=== PATIENT | female | born 1950 | race Caucasian/White ===

== ENCOUNTER 2017-04-03 17:12 | Inpatient (IN) | payer MEDICAID, MEDICARE ==
[~2017-04-03] VITALS: Ht 152.4 cm; Wt 46.3 kg
[2017-04-03 18:06] LABS: ALBUMIN 3.5 g/dL (3.4-5.0); ANION GAP 10; CALCIUM 8.8 mg/dL (8.5-10.1); CARBON DIOXIDE 29 mEq/L (21-32); CHLORIDE 107 mEq/L (98-107); INDEX HEMOLYSI 1 (1-3); INDEX ICTERIC 1 (1-4); INDEX LIPEMIC 1 (1-3); UREA NITROGEN BLOOD 25 mg/dL (7-21)
[2017-04-03 18:07] LABS: BASOPHILS % 0.4 % (0.0-2.0); EOSINOPHILS % 2.3 % (0.0-5.0); HEMATOCRIT. 36.4 % (36.0-48.0); HEMOGLOBIN. 12.8 g/dL (12.0-16.0); LYMPHOCYTES % 17.5 % (20.0-50.0); MEAN CORPUSCULAR HEMOGLOBIN 32.9 pg (28.0-32.0); MEAN CORPUSCULAR HGB CONC 35.1 g/dL (31.0-37.0); MEAN CORPUSCULAR VOLUME 93.5 fL (81.0-99.0); MEAN PLATELET VOLUME 8.4 fl (7.4-10.4); MONOCYTES % 9.6 % (2.0-8.0); NEUTROPHILS % 70.2 % (40.0-76.0); PLATELET 273 x1000/uL (130-400); RED BLOOD CELL COUNT 3.89 mill/uL (4.2-5.4); RED CELL DISTRIBUTION WIDTH 13.7 % (11.6-14.6); WHITE BLOOD COUNT 8.9 x1000/uL (4.5-11.0)
[2017-04-03 18:11] LABS: ALANINE AMINOTRANSFERASE 26 IU/L (13-61); CREATINE KINASE 277 IU/L (26-192); ETHANOL BLOOD < 10 mg/dL; PROTHROMBIN TIME 10.4 sec; eGFR > 60 mL/min (>60)
[2017-04-03] MEDS ORDERED: SODIUM CHLORIDE 0.9% 500 ML IV ONE (19:30)
[2017-04-03] MEDS ORDERED: LEVETIRACETAM 500MG PREMIX 100 ML IV ONE (20:00)
[2017-04-03] MEDS ORDERED: ONDANSETRON HCL 4MG/2ML VIAL IV PRN (20:30)
[2017-04-03] MEDS ORDERED: IPRATROPIUM/ALBUTEROL 0.5-3(2.5)MG/3ML NEB INH PRN (20:30)
[2017-04-03] MEDS ORDERED: ACETAMINOPHEN 650MG/20.3ML UDC GT PRN (20:30)
[2017-04-03] MEDS ORDERED: ACETAMINOPHEN 650MG SUPP PR PRN (20:30)
[2017-04-03] MEDS ORDERED: DIPHENHYDRAMINE 50MG/ML VIAL IV PRN (20:30)
[2017-04-03] MEDS ORDERED: CLONIDINE 0.1MG TABLET PO PRN (20:30)
[2017-04-03] MEDS ORDERED: GUAIFENESIN 200MG/10ML SUGAR FREE UDC PO PRN (20:30)
[2017-04-03] MEDS ORDERED: DEXTROSE 50% WATER 50ML SYRINGE IV PRN (20:30)
[2017-04-03] MEDS ORDERED: ACETAMINOPHEN 325MG TABLET PO PRN (20:30)
[2017-04-03] MEDS ORDERED: DOCUSATE SODIUM 100MG CAPSULE PO PRN (20:30)
[2017-04-03] MEDS ORDERED: MAGNESIUM/ALUMINUM HYDROXIDE/SIMETHICONE 30ML UDC PO PRN (20:30)
[2017-04-03] MEDS ORDERED: NA PHOS,M-B/NA PHOS,DI-BA ENEMA 118ML PR PRN (20:42)
[2017-04-03] MEDS ORDERED: LORAZEPAM 1MG TABLET PO ONE (20:45)
[2017-04-04] VITALS: BP_SYST 134; BP_SYST 142; BP_DIAS 77
[2017-04-04] MEDS: INSULIN LISPRO 100 UNITS/ML SUBCUT SCH ×5 (00:33→21:00)
[2017-04-04] MEDS: BLOOD SUGAR DIAGNOSTIC STRIP TEST SCH ×5 (00:33→21:14)
[2017-04-04] MEDS: SODIUM CHLORIDE 0.9% INJ 3ML FLUSH IVF SCH ×4 (00:35→21:14)
[2017-04-04 04:00] VITALS: BP 120/69
[2017-04-04 06:17] LABS: BASOPHILS % 0.6 % (0.0-2.0); HEMATOCRIT. 35.6 % (36.0-48.0); LYMPHOCYTES % 32.5 % (20.0-50.0); MEAN CORPUSCULAR HEMOGLOBIN 31.7 pg (28.0-32.0); MEAN CORPUSCULAR HGB CONC 33.8 g/dL (31.0-37.0); MEAN PLATELET VOLUME 8.9 fl (7.4-10.4); MONOCYTES % 12.5 % (2.0-8.0); NEUTROPHILS % 49.4 % (40.0-76.0); PLATELET 251 x1000/uL (130-400); RED BLOOD CELL COUNT 3.79 mill/uL (4.2-5.4); RED CELL DISTRIBUTION WIDTH 13.4 % (11.6-14.6); WHITE BLOOD COUNT 6.4 x1000/uL (4.5-11.0)
[2017-04-04 06:22] LABS: ALANINE AMINOTRANSFERASE 22 IU/L (13-61); ALBUMIN 3.2 g/dL (3.4-5.0); ANION GAP 10; CALCIUM 8.4 mg/dL (8.5-10.1); CARBON DIOXIDE 25 mEq/L (21-32); CHLORIDE 109 mEq/L (98-107); HDL CHOLESTEROL 74 mg/dL (40-59); INDEX HEMOLYSI 1 (1-3); INDEX ICTERIC 1 (1-4); INDEX LIPEMIC 1 (1-3); LDL CHOLESTEROL 90 mg/dL (5-100); TRIGLYCERIDE 83 mg/dL (0-150); UREA NITROGEN BLOOD 16 mg/dL (7-21); eGFR > 60 mL/min (>60)
[2017-04-04 08:00] VITALS: BP 124/60
[2017-04-04] MEDS: ASPIRIN 81MG EC TABLET PO SCH (08:59)
[2017-04-04] MEDS: THIAMINE HCL 100MG TABLET PO SCH (08:59)
[2017-04-04 12:00] VITALS: BP 121/92
[2017-04-04] MEDS: SODIUM CHLORIDE 0.45% 1,000 ML IV SCH (13:11)
[2017-04-04 16:00] VITALS: BP 129/86
[2017-04-04 19:33] LABS: CLARITY URINE CLEAR (CLEAR); COLOR URINE YELLOW (YELLOW); GLUCOSE URINE NEGATIVE (NEGATIVE); KETONES URINE NEGATIVE (NEGATIVE); LEUKOCYTE ESTERASE URINE NEGATIVE (NEGATIVE); NITRITE URINE NEGATIVE (NEGATIVE); OCCULT BLOOD URINE NEGATIVE (NEGATIVE); PROTEIN URINE NEGATIVE (NEGATIVE); SPECIFIC GRAVITY URINE 1.021 (1.005-1.030)
[2017-04-04 19:54] LABS: *AMPHETAMINES SCREEN URINE NEGATIVE (NEGATIVE); *BARBITURATES SCREEN URINE NEGATIVE (NEGATIVE); *BENZODIAZEPINES SCREEN URINE NEGATIVE (NEGATIVE); *COCAINE SCREEN URINE NEGATIVE (NEGATIVE); CANNABINOID URINE SCREEN NEGATIVE (NEGATIVE); ECSTASY MDMA SCREEN URINE NEGATIVE (NEGATIVE); METHADONE URINE SCREEN NEGATIVE (NEGATIVE); OPIATES URINE SCREEN NEGATIVE (NEGATIVE); PHENCYCLIDINE URINE SCREEN NEGATIVE (NEGATIVE)
[2017-04-04 20:00] VITALS: BP 160/91
[2017-04-04] MEDS: MEMANTINE HCL 5MG TABLET PO SCH (21:08)
[2017-04-04] MEDS: RISPERIDONE 1MG TABLET PO SCH (21:08)
[2017-04-04 23:42] LABS: INDEX HEMOLYSI 1 (1-3)
[2017-04-04 23:56] LABS: VITAMIN B12 SERUM 470 pg/mL (211-911)
[2017-04-05] VITALS: BP 115/68
[2017-04-05 04:00] VITALS: BP 118/65
[2017-04-05] MEDS: SODIUM CHLORIDE 0.9% INJ 3ML FLUSH IVF SCH ×3 (06:14→21:12)
[2017-04-05] MEDS: BLOOD SUGAR DIAGNOSTIC STRIP TEST SCH ×4 (06:14→21:12)
[2017-04-05] MEDS: SODIUM CHLORIDE 0.45% 1,000 ML IV SCH ×2 (06:14→14:07)
[2017-04-05] MEDS: INSULIN LISPRO 100 UNITS/ML SUBCUT SCH ×4 (06:17→21:00)
[2017-04-05] MEDS: MEMANTINE HCL 5MG TABLET PO SCH (09:20)
[2017-04-05] MEDS: THIAMINE HCL 100MG TABLET PO SCH (09:20)
[2017-04-05] MEDS: ASPIRIN 81MG EC TABLET PO SCH (09:20)
[2017-04-05] MEDS: RISPERIDONE 1MG TABLET PO SCH ×2 (09:20→20:58)
[2017-04-05] MEDS: FLUCONAZOLE 100MG TABLET PO SCH (10:28)
[2017-04-05 12:00] VITALS: BP 114/67
[2017-04-05 16:00] VITALS: BP 122/68
[2017-04-05 20:00] VITALS: BP 117/68
[2017-04-06] VITALS: BP 121/70
[2017-04-06 04:00] VITALS: BP 112/72
[2017-04-06] MEDS: INSULIN LISPRO 100 UNITS/ML SUBCUT SCH ×4 (06:38→21:00)
[2017-04-06] MEDS: SODIUM CHLORIDE 0.9% INJ 3ML FLUSH IVF SCH ×3 (06:38→21:02)
[2017-04-06] MEDS: SODIUM CHLORIDE 0.45% 1,000 ML IV SCH (06:38)
[2017-04-06] MEDS: BLOOD SUGAR DIAGNOSTIC STRIP TEST SCH ×4 (06:38→21:01)
[2017-04-06 08:00] VITALS: BP 112/75
[2017-04-06] MEDS: FLUCONAZOLE 100MG TABLET PO SCH (09:38)
[2017-04-06] MEDS: MEMANTINE HCL 5MG TABLET PO SCH (09:38)
[2017-04-06] MEDS: ASPIRIN 81MG EC TABLET PO SCH (09:38)
[2017-04-06] MEDS: THIAMINE HCL 100MG TABLET PO SCH (09:38)
[2017-04-06] MEDS: RISPERIDONE 1MG TABLET PO SCH ×2 (09:38→20:57)
[2017-04-06 12:00] VITALS: BP 91/50
[2017-04-06 12:24] LABS: BASOPHILS % 0.5 % (0.0-2.0); HEMATOCRIT. 35.9 % (36.0-48.0); LYMPHOCYTES % 26.5 % (20.0-50.0); MEAN CORPUSCULAR HEMOGLOBIN 31.3 pg (28.0-32.0); MEAN CORPUSCULAR HGB CONC 33.5 g/dL (31.0-37.0); MEAN CORPUSCULAR VOLUME 93.4 fL (81.0-99.0); MEAN PLATELET VOLUME 8.3 fl (7.4-10.4); MONOCYTES % 10.7 % (2.0-8.0); NEUTROPHILS % 60.3 % (40.0-76.0); PLATELET 251 x1000/uL (130-400); RED BLOOD CELL COUNT 3.84 mill/uL (4.2-5.4); RED CELL DISTRIBUTION WIDTH 13.2 % (11.6-14.6); WHITE BLOOD COUNT 5.4 x1000/uL (4.5-11.0)
[2017-04-06 12:48] LABS: ALANINE AMINOTRANSFERASE 24 IU/L (13-61); ALBUMIN 3.4 g/dL (3.4-5.0); ANION GAP 11; CALCIUM 8.5 mg/dL (8.5-10.1); CARBON DIOXIDE 26 mEq/L (21-32); CHLORIDE 104 mEq/L (98-107); INDEX HEMOLYSI 1 (1-3); INDEX ICTERIC 1 (1-4); INDEX LIPEMIC 1 (1-3); UREA NITROGEN BLOOD 11 mg/dL (7-21); eGFR > 60 mL/min (>60)
[2017-04-06 16:00] VITALS: BP 104/69
[2017-04-06 20:00] VITALS: BP 140/68
[2017-04-07] VITALS: BP 112/75
[2017-04-07] MEDS: SODIUM CHLORIDE 0.45% 1,000 ML IV SCH ×2 (00:01→08:38)
[2017-04-07 04:00] VITALS: BP 100/58
[2017-04-07] MEDS: SODIUM CHLORIDE 0.9% INJ 3ML FLUSH IVF SCH ×3 (06:35→21:53)
[2017-04-07] MEDS: INSULIN LISPRO 100 UNITS/ML SUBCUT SCH ×4 (06:37→21:00)
[2017-04-07] MEDS: BLOOD SUGAR DIAGNOSTIC STRIP TEST SCH ×4 (06:37→21:00)
[2017-04-07 08:00] VITALS: BP 131/83
[2017-04-07] MEDS: THIAMINE HCL 100MG TABLET PO SCH (08:37)
[2017-04-07] MEDS: ASPIRIN 81MG EC TABLET PO SCH (08:37)
[2017-04-07] MEDS: MEMANTINE HCL 5MG TABLET PO SCH (08:37)
[2017-04-07] MEDS: RISPERIDONE 1MG TABLET PO SCH ×2 (08:37→21:53)
[2017-04-07] MEDS: FLUCONAZOLE 100MG TABLET PO SCH (08:37)
[2017-04-07 12:00] VITALS: BP 108/65
[2017-04-07 16:00] VITALS: BP 113/66
[2017-04-07 20:00] VITALS: BP 134/77
[2017-04-07] MEDS: CLOTRIMAZOLE 1% CREAM 30GM TOP SCH (21:54)
[2017-04-08] VITALS: BP 93/49
[2017-04-08 04:00] VITALS: BP 114/64
[2017-04-08] MEDS: SODIUM CHLORIDE 0.9% INJ 3ML FLUSH IVF SCH ×3 (05:41→21:08)
[2017-04-08] MEDS: SODIUM CHLORIDE 0.45% 1,000 ML IV SCH (05:43)
[2017-04-08] MEDS: BLOOD SUGAR DIAGNOSTIC STRIP TEST SCH ×4 (06:34→21:00)
[2017-04-08] MEDS: INSULIN LISPRO 100 UNITS/ML SUBCUT SCH ×4 (06:34→21:00)
[2017-04-08 08:00] VITALS: BP 121/68
[2017-04-08] MEDS: THIAMINE HCL 100MG TABLET PO SCH (08:42)
[2017-04-08] MEDS: FLUCONAZOLE 100MG TABLET PO SCH (08:43)
[2017-04-08] MEDS: ASPIRIN 81MG EC TABLET PO SCH (08:43)
[2017-04-08] MEDS: MEMANTINE HCL 5MG TABLET PO SCH (08:43)
[2017-04-08] MEDS: RISPERIDONE 1MG TABLET PO SCH ×2 (08:43→20:56)
[2017-04-08 11:57] VITALS: BP 93/47
[2017-04-08] MEDS: CLOTRIMAZOLE 1% CREAM 30GM TOP SCH ×2 (12:19→20:54)
[2017-04-08 16:07] VITALS: BP 118/87
[2017-04-08 20:00] VITALS: BP 116/70
[2017-04-09] VITALS: BP 114/69
[2017-04-09 04:00] VITALS: BP 112/68
[2017-04-09] MEDS: BLOOD SUGAR DIAGNOSTIC STRIP TEST SCH ×2 (06:00→11:45)
[2017-04-09] MEDS: SODIUM CHLORIDE 0.9% INJ 3ML FLUSH IVF SCH (06:01)
[2017-04-09] MEDS: INSULIN LISPRO 100 UNITS/ML SUBCUT SCH ×2 (06:15→12:15)
[2017-04-09 08:00] VITALS: BP 105/71
[2017-04-09] MEDS: ASPIRIN 81MG EC TABLET PO SCH (09:58)
[2017-04-09] MEDS: MEMANTINE HCL 5MG TABLET PO SCH (09:58)
[2017-04-09] MEDS: THIAMINE HCL 100MG TABLET PO SCH (09:58)
[2017-04-09] MEDS: RISPERIDONE 1MG TABLET PO SCH (09:58)
[2017-04-09] MEDS: FLUCONAZOLE 100MG TABLET PO SCH (09:58)
[2017-04-09] MEDS: CLOTRIMAZOLE 1% CREAM 30GM TOP SCH (09:59)
[2017-04-09 12:00] VITALS: BP 131/71
[2017-04-09 15:30] VITALS: BP 131/76
== END 2017-04-09 15:32 | DRG 52 ==
LOC: ER 17:13 → 5WST 20:43
PROVIDERS: ADMIT Family Medicine; ATTEND Family Medicine
DX: G93.40 Encephalopathy, unspecified (principal); L89.90 Pressure ulcer of unspecified site, unspecified stage; F01.50 Vascular dementia, unspecified severity, without behavioral disturbance, psychotic disturbance, mood disturbance, and anxiety; R62.7 Adult failure to thrive; G40.909 Epilepsy, unspecified, not intractable, without status epilepticus; E11.9 Type 2 diabetes mellitus without complications; R41.0 Disorientation, unspecified; E86.0 Dehydration; W19.XXXA Unspecified fall, initial encounter; Z86.73 Personal history of transient ischemic attack (TIA), and cerebral infarction without residual deficits; Y93.89 Activity, other specified; Y92.89 Other specified places as the place of occurrence of the external cause; Y99.8 Other external cause status
CPT/HCPCS: 36415; 70450; 71010; 80053; 80061; 80305; 81003; 82550; 82607; 82962; 83605; 84443; 84484; 85025; 85610; 86592; 92610; 93005; 96361; 96372; 96374; 97116; 97162; 99285; A6261; G0482; J1200; J1815; J1953; J7040

== ENCOUNTER 2017-09-19 18:29 | Emergency (ER) | payer MEDICARE ==
[~2017-09-19] VITALS: Ht 162.6 cm; Wt 50.0 kg
[2017-09-19 21:56] LABS: BASOPHILS % 1.2 % (0.0-2.0); EOSINOPHILS % 3.5 % (0.0-5.0); HEMATOCRIT. 37.8 % (36.0-48.0); HEMOGLOBIN. 12.8 g/dL (12.0-16.0); LYMPHOCYTES % 28.8 % (20.0-50.0); MEAN CORPUSCULAR HEMOGLOBIN 32.1 pg (28.0-32.0); MEAN CORPUSCULAR VOLUME 94.6 fL (81.0-99.0); MEAN PLATELET VOLUME 7.9 fl (7.4-10.4); MONOCYTES % 11.9 % (2.0-8.0); NEUTROPHILS % 54.6 % (40.0-76.0); PLATELET 324 x1000/uL (130-400); RED BLOOD CELL COUNT 3.99 mill/uL (4.2-5.4); RED CELL DISTRIBUTION WIDTH 13.3 % (11.6-14.6)
[2017-09-19 21:59] LABS: PROTHROMBIN TIME 10.7 sec (9.4-11.6)
[2017-09-19 22:46] LABS: CARBON DIOXIDE 28 mEq/L (21-32); CHLORIDE 97 mEq/L (98-107)
[2017-09-19 23:08] LABS: CLARITY URINE CLEAR (CLEAR); COLOR URINE YELLOW (YELLOW); GLUCOSE URINE NEGATIVE (NEGATIVE); KETONES URINE NEGATIVE (NEGATIVE); LEUKOCYTE ESTERASE URINE NEGATIVE (NEGATIVE); NITRITE URINE NEGATIVE (NEGATIVE); OCCULT BLOOD URINE NEGATIVE (NEGATIVE); PH URINE 6.5 (4.5-8.0); PROTEIN URINE NEGATIVE (NEGATIVE); SPECIFIC GRAVITY URINE 1.013 (1.005-1.030)
[2017-09-20 05:00] VITALS: BP 120/76
[2017-09-29] MEDS ORDERED: ASPI-1160 PO (17:10)
[2017-09-29] MEDS ORDERED: ATOR10TA PO (17:10)
== END 2017-09-20 05:00 | disposition home or self-care (01) ==
LOC: ER 19:24
DX: R63.0 Anorexia (principal); I10 Essential (primary) hypertension; E11.9 Type 2 diabetes mellitus without complications; J44.9 Chronic obstructive pulmonary disease, unspecified; F03.90 Unspecified dementia, unspecified severity, without behavioral disturbance, psychotic disturbance, mood disturbance, and anxiety; R56.9 Unspecified convulsions; Z86.73 Personal history of transient ischemic attack (TIA), and cerebral infarction without residual deficits
CPT/HCPCS: 36415; 71010; 80053; 81003; 85025; 85610; 93005; 99285